=== PATIENT | male | born 1995 | race Caucasian/White ===

== ENCOUNTER 2020-03-26 19:32 | Emergency (ER) | payer OTHER ==
[2020-03-26 19:38] VITALS: BP 146/99; PULSE 78; RESP 17; TEMP 98.7
[2020-03-26] MEDS ORDERED: LIDOCAINE 1% INJ 10MG/ML (20 ML MDV) SQ ONE (19:53)
[2020-03-26] MEDS ORDERED: IBUPROFEN 600 MG TAB PO STA (19:53)
--- NOTE | 2020-03-26 20:12 | XR ---
Second finger left hand HISTORY: Trauma and pain 3 views of the second digit of left hand There is soft tissue swelling present. Bone mineralization, joint spaces and alignment are maintained . IMPRESSION: Soft tissue swelling. No fracture or dislocation is evident.
[2020-03-26] MEDS ORDERED: BACITRACIN OINT 1 EACH PACKET TOPICAL ONE (21:40)
[2020-03-26] MEDS ORDERED: CEPHALEXIN 500MG STARTER PACK 4 CAP BTL PO STA (21:40)
--- NOTE | 2020-03-26 21:40 | ED ---
General Adult HPI - General Chief complaint: Wound/Laceration Stated complaint: [facility] finger injury Time Seen by Provider: 03/26/20 19:34 Source: patient, EMS Mode of arrival: EMS Limitations: no limitations - History of Present Illness Initial comments: 24-year-old male presents to the emergency department this evening via EMS from work with complaints of crush injury to the second digit of the left hand. Patient arrived with wound cleansed and dressed per EMS. States injury occurred around 6:30 this evening and describes a constant throbbing sensation in his finger. Denies any numbness or tingling. Denies any other injuries. Patient denies any headache, neck pain, back pain, chest pain, shortness of breath, dizziness, weakness, abdominal pain, nausea, vomiting, or difficulties with bowel movements or urination. - Related Data Previous Rx's Medication Instructions Recorded Cephalexin [Keflex] 500 mg PO BID #14 cap 03/26/20 Allergies Allergy/AdvReac Type Severity Reaction Status Date / Time No Known Allergies Allergy Verified 03/26/20 19:37 Review of Systems ROS Statement: Those systems with pertinent positive or pertinent negative responses have been documented in the HPI. ROS Other: All systems not noted in ROS Statement are negative. Past Medical History Past Medical History: No Reported History History of Any Multi-Drug Resistant Organisms: None Reported Past Surgical History: No Surgical Hx Reported Past Psychological History: Anxiety Smoking Status: Never smoker Past Alcohol Use History: Occasional Past Drug Use History: None Reported General Exam Limitations: no limitations General appearance: alert, in no apparent distress, other (Well-developed, well- nourished male in no acute distress. Presenting vital signs include Temperature 98.7, pulse 78, respirations 17, blood pressure 146/99, pulse ox 99% on room air.) ENT exam: Present: normal exam, mucous membranes moist Respiratory exam: Present: normal lung sounds bilaterally. Absent: respiratory distress, wheezes, rales, rhonchi, stridor Cardiovascular Exam: Present: regular rate, normal rhythm, normal heart sounds. Absent: systolic murmur, diastolic murmur, rubs, gallop, clicks GI/Abdominal exam: Present: soft, normal bowel sounds. Absent: distended, tenderness, guarding, rebound, rigid Left Elbow exam: Present: normal inspection, full ROM Forearm Wrist exam: Present: normal inspection, full ROM Hand Wrist exam: Present: tenderness, swelling, laceration (3 cm vertical laceration on the ventral surface of the second digit spanning the DIP), other (Injuries on both the dorsal and ventral surfaces of the second digit of the left left hand) Neuro motor exam: Present: other (ROM of 2nd digit flexion and extension limited by pain but improved after digital blocking) Vascular: Present: normal capillary refill, radial pulse Psychiatric exam: Present: normal affect, normal mood Skin exam: Present: warm, dry, intact, normal color. Absent: rash Course Vital Signs 03/26/20 19:33 Temperature 98.7 F Pulse Rate 78 Respiratory 17 Rate Blood Pressure 146/99 O2 Sat by Pulse 99 Oximetry Procedures - Laceration Laceration #1 Consent Obtained: verbal consent Indication: laceration Site: hand (Ventral surface of the second digit of the left hand) Size (cm): 3 Description: linear Depth: simple, single layer Anesthetic Used: lidocaine 1% Anesthesia Technique: nerve block (Second digit of the left hand) Amount (mls): 5 Pre-repair: wound explored, irrigated extensively Type of Sutures: nylon Size of Sutures: 5-0 Number of Sutures: 4 Technique: simple, interrupted Patient Tolerated Procedure: well Medical Decision Making - Medical Decision Making 24-year-old male presents to the emergency department this evening with complaints of crush injury to the second digit of the left hand. States injury occurred while at work around 6:30 this evening. Received 25 mg of ketamine intranasally en route for pain control. Moderate amount of swelling to the digit. Small abrasions noted on the dorsal surface, 3 cm vertical laceration noted on the ventral surface crossing the DIP line, and skin flap wound located proximal to the laceration. Decreases in both flexion and extension of the affected digit nearly resolved upon departure. No fracture seen on x-ray of the second digit of the left hand. 4 sutures were placed to the laceration which was easily approximated. Patient verbalizes certainty that his tetanus shot has been updated within the last 5 years. Bacitracin dressing applied to laceration and finger splint placed. Patient instructed to follow-up with primary care provider in one to 2 days for a wound recheck, and then to return to have sutures removed in 7 days. Discussed daily dressing changes and patient advised to monitor wound carefully for signs of infection including fever, purulent drainage, red streaking into the hand. Prescribed antibiotic and given a note to restrict his ability to work. Directed to return to the emergency department with intolerable pain, new-onset of fever, evidence of infection, or overall worsening condition. Patient verbalizes understanding and agrees with this plan. - Radiology Data Radiology results: report reviewed, image reviewed X-ray of the second finger of the left hand was obtained. Impression per Dr. Kim include soft tissue swelling. No fracture or dislocation is evident. Disposition Clinical Impression: Laceration of left index finger, Crushing injury of left index finger Disposition: HOME SELF-CARE Condition: Good Instructions (If sedation given, give patient instructions): Care For Your Stitches (ED), Laceration (ED), Crush Injury (ED) Additional Instructions: Keep wound clean and dry. Follow-up with primary care provider for wound recheck in the next 1-2 days. Apply bacitracin to wound with daily dressing changes. Monitor carefully for signs of infection. Take antibiotic as prescribed. Return to the emergency department with any new, worsening, or concerning symptoms. Sutures need to be removed in 7 days. Prescriptions: Cephalexin [Keflex] 500 mg PO BID #14 cap Is patient prescribed a controlled substance at d/c from ED?: No Referrals: None,Stated [Primary Care Provider] - 1-2 days Time of Disposition: 21:41
== END 2020-03-26 22:07 | disposition home or self-care (01) ==
LOC: EC 19:32
DX: S61.211A Laceration without foreign body of left index finger without damage to nail, initial encounter (principal); W23.0XXA Caught, crushed, jammed, or pinched between moving objects, initial encounter; Y92.69 Other specified industrial and construction area as the place of occurrence of the external cause; Y99.0 Civilian activity done for income or pay
CPT/HCPCS: 12002; 99283; 73140; J2001

== ENCOUNTER → 2024-04-09 | Outpatient (CLI) | payer OTHER ==
--- NOTE | 2024-04-09 15:12 | MR ---
EXAMINATION TYPE: MR brain wo con DATE OF EXAM: 04/09/2024 3:02 PM CLINICAL INDICATION: Male, 28 years old with history of G43.109 MIGRAINE WITH AURA; PHH, Headaches, d izziness, light headed. COMPARISON: 08/11/2011. TECHNIQUE: Multi planar, multi sequence imaging was performed through the brain including: T1, T2, In version recovery, Diffusion weighted imaging, and gradient echo imaging. No gadolinium was given. FINDINGS: The orozco-white junctions, ventricular system, basal cisterns appear unremarkable. Few scattered left foci of white matter changes in the left frontal lobe. Midline structures show no abnormality. Diffusion-weighted imaging shows no evidence of restricted di ffusion. The susceptibility weighted images do not reveal any evidence for micro-hemorrhage. The bone marrow signal is within normal limits. Paranasal sinuses and mastoid air cells: No significant paranasal sinus disease. Visualized orbits: Orbital contents are intact. IMPRESSION: 1. No evidence of intracranial mass or acute/subacute infarct. 2. Minimal scattered white matter changes which could be sequela prior migraines. These are stable fr om 2011. [facility], , 04/09/2024 3:09 PM
== END | disposition home or self-care (01) ==
LOC: RADMRIMAIN 14:03
PROVIDERS: ATTEND Family Medicine
DX: G43.109 Migraine with aura, not intractable, without status migrainosus (principal)
CPT/HCPCS: 70551

== ENCOUNTER → 2024-06-07 | Outpatient (CLI) | payer OTHER | LOC: CPPFTMAIN 11:19 | PROVIDERS: ATTEND Family Medicine | DX: R06.02 Shortness of breath (principal) | CPT/HCPCS: 94060; 94726; 94729 ==